=== PATIENT | male | born 1965 | race Caucasian/White ===

== ENCOUNTER → 2017-01-15 | Outpatient (REF) ==
[~2017-01-15] MED LIST: LORTAB 5/500 501 TAB PO; NAPROSYN500 MG PO; NO HOME MEDICATIONS; PERCOCET 325 MG1 TA2 PO; PHENERGAN 25 TA25 MG PO; PRILOSEC 20MG20 MG PO; ZANTAC 150MG T150 MG; ZOCOR 20MG20 MG PO
== END ==
LOC: WSOH 08:36
DX: Z00.00 Encounter for general adult medical examination without abnormal findings (principal)